=== PATIENT | female | born 1990 | race Two or more races ===

== ENCOUNTER 2021-10-09 08:58 | Emergency (ER) | payer OTHER ==
[2021-10-09] MEDS ORDERED: MAGNES/ALUMIN/SIMET 30ML UCUP ONE (11:09)
[2021-10-09] MEDS ORDERED: ONDANSETRON 4 MG/2 ML VIAL ONE (11:10)
[2021-10-09] MEDS ORDERED: MORPHINE 4 MG/ML SYR ONE (11:10)
[2021-10-09] MEDS ORDERED: dexAMETHasone 10 MG/ML VIAL ONE (11:10)
[2021-10-09] MEDS ORDERED: LIDOCAINE VISCOUS 2% SOLN 15 ML UDC ONE ×2 (11:10→12:44)
[2021-10-09 11:42] LABS: Urine Blood Negative (Negative); Urine Glucose Negative (Negative); Urine Protein Negative (Negative); Urine Specific Gravity >=1.030 (1.005-1.030)
[2021-10-09 12:20] LABS: SARS-COV-2 RT PCR NEGATIVE (NEGATIVE)
--- NOTE | 2021-10-09 12:23 | RAD REPORT ---
EXAM DESCRIPTION: CT - Soft Tissue Neck W/Contr CLINICAL HISTORY: Rule out abscess COMPARISON: No comparisons TECHNIQUE All CT scans are performed using dose optimization technique as appropriate and may includ e automated exposure control or mA/KV adjustment according to patient size. FINDINGS: Hypertrophy of Waldeyer's ring. No fluid collection identified. Fossa Rosenmller are norm al. Parapharyngeal fat triangles are symmetric. Tongue base structures are normal. Epiglottis and aryepiglottic folds are normal. Piriform sinuses are well aerated. The vocal cords are normal in appearance. Salivary glands are normal in appearance. Upper lung bennett are clear. Included intracranial contents are unremarkable. IMPRESSION: Prominent presumably reactive tonsils but no fluid collection or evidence of significant airway narrowing.
[2021-10-09] MEDS ORDERED: LIDOCAINE 1% 20 ML MDV ONE (12:44)
[2021-10-09] MEDS ORDERED: BUPIVACAINE 0.5% PF 10 ML VIAL ONE (12:44)
[2021-10-09] MEDS ORDERED: CLINDAMYCIN 900MG/D5W 900 MG/50 ML IVPB IV ONE (12:46)
[2021-10-09] MEDS ORDERED: LORazepam 2 MG/ML VIAL ONE (13:24)
--- NOTE | 2021-10-09 14:18 | ER ---
Nurse's Notes [facility] Name: Nae Harris Age: 31 yrs Sex: Female : 1990 Arrival Date: 10/09/2021 Time: 09:04 Bed 23 Private MD: Diagnosis: Acute pharyngitis, unspecified Presentation: 10/09 09:37 Chief complaint: Patient states: approx three days ago, she started having pain in her ap3 throat. She reports the pain has gotten worse over the last few days, and her made her come to the ED for evaluation. Patient also reports she is unable to eat, it hurts to swallow and it is getting worse. Patient also reports left ear pain, and throbbing on the left side of her face. Patient communicates through hand motion and written communication due to severe pain. Coronavirus screen: At this time, the client does not indicate any symptoms associated with coronavirus-19. Ebola Screen: No symptoms or risks identified at this time. Initial Sepsis Screen: Does the patient meet any 2 criteria? No. Patient's initial sepsis screen is negative. Does the patient have a suspected source of infection? No. Patient's initial sepsis screen is negative. Risk Assessment: Do you want to hurt yourself or someone else? Patient reports no desire to harm self or others. Onset of symptoms was October 06, 2021. 09:37 Method Of Arrival: Ambulatory ap3 09:37 Acuity: QUINTON 3 ap3 Triage Assessment: 09:41 General: Appears uncomfortable, Behavior is quiet. Pain: Complains of pain in neck, ap3 throat, left face, left ear Pain currently is 10 out of 10 on a pain scale. Also complains of inability to eat and verbally communicate. EENT: Throat is reddened has patchy exudate on right Reports difficulty swallowing pain when swallowing. Neuro: Level of Consciousness is awake, alert, obeys commands, Oriented to person, place, time, situation, Gait is steady, Speech is normal. Cardiovascular: Patient's skin is warm and dry. Respiratory: Airway is patent Respiratory effort is even, unlabored, Respiratory pattern is regular, symmetrical. 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 - Social history:: Smoking status: Patient denies any tobacco usage or history of. Screenin:42 Abuse screen: Denies threats or abuse. Nutritional screening: No deficits noted. ap3 Tuberculosis screening: No symptoms or risk factors identified. 09:45 Fall Risk No fall in past 12 months (0 pts). ap3 Assessment: 10:05 General: Appears in no apparent distress. uncomfortable, Behavior is cooperative, ab2 appropriate for age. Pain: Complains of pain in throat Pain currently is 10 out of 10 on a pain scale. Neuro: Level of Consciousness is awake, alert, obeys commands, Oriented to person, Commercial Food Instructor are equal bilaterally Full function Gait is steady. Cardiovascular: No deficits noted. Denies chest pain, shortness of breath, Heart tones S1 S2 present Patient's skin is warm and dry. Respiratory: Airway is patent Respiratory effort is even, unlabored, Respiratory pattern is regular, symmetrical, GI: No deficits noted. No signs and/or symptoms were reported involving the gastrointestinal system. Abdomen is round non-distended, Bowel sounds present X 4 quads. : No deficits noted. No signs and/or symptoms were reported regarding the genitourinary system. EENT: Reports pain in throat when swallowing. Derm: Skin is intact, is healthy with good turgor, Skin is pink, warm \\T\\ dry. 11:56 Reassessment: Patient appears in no apparent distress at this time. No changes from ab2 previously documented assessment. Patient went to CT scan. Pt states throat was feeling better but it still causes her pain to swallow. 12:44 Reassessment: Patient appears in no apparent distress at this time. Pt still in pain, ab2 PA Mickail notified. 13:32 Reassessment: Patient appears in no apparent distress at this time. Pt states she has ab2 anxiety and is anxious. Order for Ativan given per PA order. Pt tolerating well. Vital Signs: 09:37 BP 100 / 58; Pulse 73; Temp 99.5; Pulse Ox 100% ; Weight 61.23 kg; Height 5 ft. 8 in. ap3 (172.72 cm); Pain 10/10; 10:41 BP 97 / 54; Pulse 71; Resp 18; Pulse Ox 100% ; Pain 10/10; ab2 11:15 BP 118 / 70; Pulse 79; Resp 18; Pulse Ox 100% on R/A; ab2 12:44 BP 103 / 64; Pulse 63; Resp 17; Pulse Ox 100% on R/A; ab2 13:32 BP 109 / 73; Pulse 69; Resp 18; Pulse Ox 100% on R/A; ab2 14:03 BP 105 / 68; Pulse 75; Resp 16; Pulse Ox 99% on R/A; ab2 09:37 Body Mass Index 20.53 (61.23 kg, 172.72 cm) ap3 ED Course: 09:04 Patient arrived in ED. am2 09:13 Everton Beltran PA is PHCP. jmm 09:13 Earle Argueta MD is Attending Physician. jmm 09:39 Triage completed. ap3 09:45 Arm band placed on left wrist. ap3 10:05 Joseph Butler is Primary Nurse. ab2 10:07 Patient has correct armband on for positive identification. Bed in low position. Call ab2 light in reach. Side rails up X2. 10:07 No provider procedures requiring assistance completed. ab2 10:42 COVID-19/FLU A+B (Document "Date of Onset" if Symptomatic) Sent. ab2 10:42 Strep Sent. ab2 11:15 Inserted saline lock: 20 gauge in right antecubital area, using aseptic technique. ab2 12:18 Soft Tissue Neck W/Contr In Process Unspecified. EDMS 14:03 IV discontinued, intact, bleeding controlled, No redness/swelling at site. Pressure ab2 dressing applied. 14:16 Anya Khanna MD is Referral Physician. sorayam Administered Medications: 10:25 CANCELLED (Duplicate Order): morphine 4 mg IM once; RASS on ADMIN: Combtv4, Very jmm Agttd3, Agttd2, Rstlss1, AlertClm0, Drwsy-1, Lt Sdtn-2, Mod Sdtn-3, Dp Sdtn-4, UnArsble-5 10:41 CANCELLED (Duplicate Order): Ondansetron 4 mg PO once ab2 11:14 Drug: Zofran (Ondansetron) 4 mg Route: IVP; Site: right antecubital; ab2 13:38 Follow up: Response: No adverse reaction ab2 11:15 Drug: Decadron (dexamethasone) 10 mg Route: IM; Site: right deltoid; ab2 13:38 Follow up: Response: No adverse reaction ab2 11:15 Drug: GI Cocktail without - (Maalox Suspension 30 ml, Lidocaine Liquid 2 % 15 ab2 ml) Route: PO; 13:38 Follow up: Response: No adverse reaction ab2 11:15 Drug: morphine 4 mg Route: IVP; Site: right antecubital; ab2 13:38 Follow up: Response: No adverse reaction ab2 12:41 CANCELLED (Duplicate Order): Decadron - Dexamethasone 10 mg IVP once ab2 12:44 Drug: Clindamycin 900 mg Route: IVPB; Infused Over: 30 mins; Site: right antecubital; ab2 12:47 Drug: Marcaine (bupivacaine) (0.5 %) 10 ml {Note: used by devin MCDANIEL} Volume: 10 ml; ab2 Route: Infiltration; 12:47 Drug: Lidocaine (1 %) 20 ml {Note: used by Devin MCDANIEL} Volume: 20 ml; Route: ab2 Infiltration; 13:38 Follow up: Response: No adverse reaction ab2 13:24 Drug: Ativan (LORazepam) 1 mg Route: IVP; Site: right antecubital; ab2 13:38 Follow up: Response: No adverse reaction ab2 Outcome: 14:18 Discharge ordered by MD. [place] 14:31 Discharged to home ambulatory. ab2 14:31 Condition: good 14:31 Discharge instructions given to patient, Instructed on discharge instructions, follow up and referral plans. medication usage, Demonstrated understanding of instructions, follow-up care, medications, Prescriptions given X 1. 14:31 Patient left the ED. ab2 Signatures: Dispatcher [employer] EDMS Everton Beltran PA PA jmm Moreno, Amanda am2 Elizabeth Stephens, RN RN ap3 Joseph Butler ab2
--- NOTE | 2021-10-09 14:18 | EDPHYS ---
Physician Documentation [facility] Name: Nae Harris Age: 31 yrs Sex: Female : 1990 Arrival Date: 10/09/2021 Time: 09:04 Bed 23 Private MD: TOD Physician Earle Argueta HPI: 10/09 10:04 This 31 yrs old Female presents to ER via Ambulatory with complaints of Sore Throat, jmm Headache, Ear Pain, Facial pain. 10:04 The patient presents with sore throat. Onset: The symptoms/episode began/occurred jmm gradually, 3 day(s) ago. Modifying factors: The symptoms are alleviated by nothing, the symptoms are aggravated by fluids, swallowing. This is a 31-year-old female with history of tubal the presents emerged part with complaints of sore throat began approximately 3 days ago. Patient now has difficulty speaking, feels worse, pain on swallowing, radiates into the left ear.. 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 - Social history:: Smoking status: Patient denies any tobacco usage or history of. ROS: 10:04 Constitutional: Negative for fever, chills, and weight loss. jmm 10:04 Neck: Negative for injury, pain, and swelling, Cardiovascular: Negative for chest pain, palpitations, and edema, Respiratory: Negative for shortness of breath, cough, wheezing, and pleuritic chest pain. 10:04 ENT: Positive for sore throat. 10:04 All other systems are negative. Exam: 10:04 Constitutional: This is a well developed, well nourished patient who is awake, alert, jmm and in no acute distress. Head/Face: atraumatic. Eyes: EOMI, no conjunctival erythema appreciated 10:04 Neck: Trachea midline, Supple Chest/axilla: Normal chest wall appearance and motion. Cardiovascular: Regular rate and rhythm. No edema appreciated Respiratory: Normal respirations, no respiratory distress appreciated Abdomen/GI: Non distended, soft Back: Normal ROM Skin: General appearance color normal MS/ Extremity: Moves all extremities, no obvious deformities appreciated, no edema noted to the lower extremities Neuro: Awake and alert Psych: Behavior is normal, Mood is normal, Patient is cooperative and pleasant 10:04 ENT: Posterior pharynx: Tonsils: erythema, peritonsillar mass, is not appreciated. Vital Signs: 09:37 BP 100 / 58; Pulse 73; Temp 99.5; Pulse Ox 100% ; Weight 61.23 kg; Height 5 ft. 8 in. ap3 (172.72 cm); Pain 10/10; 10:41 BP 97 / 54; Pulse 71; Resp 18; Pulse Ox 100% ; Pain 10/10; ab2 11:15 BP 118 / 70; Pulse 79; Resp 18; Pulse Ox 100% on R/A; ab2 12:44 BP 103 / 64; Pulse 63; Resp 17; Pulse Ox 100% on R/A; ab2 13:32 BP 109 / 73; Pulse 69; Resp 18; Pulse Ox 100% on R/A; ab2 14:03 BP 105 / 68; Pulse 75; Resp 16; Pulse Ox 99% on R/A; ab2 09:37 Body Mass Index 20.53 (61.23 kg, 172.72 cm) ap3 MDM: 10:04 Patient medically screened. [facility] 14:15 Data reviewed: vital signs, nurses notes. ED course: Patient remained very jmm uncomfortable after administration of additional pain medications. Patient was then given viscous lidocaine and 0.5% Marcaine 1 male was injected into the left peritonsillar region. This did give the patient relief. Patient was able to speak speak after this. Patient given dexamethasone will be given oral antibiotics and advised follow-up with ENT for further evaluation.. 10/09 10:22 Order name: Strep; Complete Time: 11:51 [facility] 10/09 10:22 Order name: COVID-19/FLU A+B (Document "Date of Onset" if Symptomatic); Complete Time: [facility] 12:27 10/09 11:42 Order name: Urine Dipstick-Ancillary; Complete Time: 11:51 [facility] 10/09 11:43 Order name: Throat Culture [facility] 10/09 10:42 Order name: Soft Tissue Neck W/Contr; Complete Time: 12:27 EDMS 10/09 10:24 Order name: Saline Lock; Complete Time: 11:15 jmm 10/09 11:33 Order name: Urine Test (obtain specimen); Complete Time: 11:41 [facility] Administered Medications: 10:25 CANCELLED (Duplicate Order): morphine 4 mg IM once; RASS on ADMIN: Combtv4, Very jmm Agttd3, Agttd2, Rstlss1, AlertClm0, Drwsy-1, Lt Sdtn-2, Mod Sdtn-3, Dp Sdtn-4, UnArsble-5 10:41 CANCELLED (Duplicate Order): Ondansetron 4 mg PO once ab2 11:14 Drug: Zofran (Ondansetron) 4 mg Route: IVP; Site: right antecubital; ab2 13:38 Follow up: Response: No adverse reaction ab2 11:15 Drug: Decadron (dexamethasone) 10 mg Route: IM; Site: right deltoid; ab2 13:38 Follow up: Response: No adverse reaction ab2 11:15 Drug: GI Cocktail without - (Maalox Suspension 30 ml, Lidocaine Liquid 2 % 15 ab2 ml) Route: PO; 13:38 Follow up: Response: No adverse reaction ab2 11:15 Drug: morphine 4 mg Route: IVP; Site: right antecubital; ab2 13:38 Follow up: Response: No adverse reaction ab2 12:41 CANCELLED (Duplicate Order): Decadron - Dexamethasone 10 mg IVP once ab2 12:44 Drug: Clindamycin 900 mg Route: IVPB; Infused Over: 30 mins; Site: right antecubital; ab2 12:47 Drug: Marcaine (bupivacaine) (0.5 %) 10 ml {Note: used by devin PA.} Volume: 10 ml; ab2 Route: Infiltration; 12:47 Drug: Lidocaine (1 %) 20 ml {Note: used by Devin PA.} Volume: 20 ml; Route: ab2 Infiltration; 13:38 Follow up: Response: No adverse reaction ab2 13:24 Drug: Ativan (LORazepam) 1 mg Route: IVP; Site: right antecubital; ab2 13:38 Follow up: Response: No adverse reaction ab2 Disposition Summary: 10/09/21 14:18 Discharge Ordered Location: Home [facility] Condition: Stable [facility] Diagnosis - Acute pharyngitis, unspecified [facility] Followup: [facility] - With: Anya Khanna MD - When: 2 - 3 days - Reason: Recheck today's complaints, Continuance of care, Re-evaluation by your physician Discharge Instructions: - Discharge Summary Sheet jm - Pharyngitis jmm - Strep Throat, Adult [facility] Forms: - Medication Reconciliation Form jmm - Work release form [facility] - Thank You Letter [facility] - Antibiotic Education [facility] - Prescription Opioid Use [facility] Prescriptions: - clindamycin palmitate HCl 75 mg/5 mL Oral recon soln - take 20 milliliter by ORAL route every 6 hours; 800 milliliter; Refills: 0, [facility] Product Selection Permitted Addendum: 10/11/2021 18:41 Co-signature as Attending Physician, Earle Argueta MD I agree with the assessment and c uribe plan of care. Signatures: Dispatcher [employer] Earle Lowe MD MD cha Mickail, Joel, PA PA Elizabeth Portillo, RN RN ap3 Joseph Butler2 Corrections: (The following items were deleted from the chart) 10/09 10:25 10:22 morphine 4 mg IM once; RASS on ADMIN: Combtv4, Very Agttd3, Agttd2, Rstlss1, [facility] AlertClm0, Drwsy-1, Lt Sdtn-2, Mod Sdtn-3, Dp Sdtn-4, UnArsble-5 ordered. [facility] 10:36 10:30 CT-SOFT TISSUE NECK W/O CONTR ordered. [facility] EDMS 10:41 10:22 Ondansetron 4 mg PO once ordered. [facility] ab2 10:42 10:36 Soft Tissue Neck Wo Contr ordered. [facility] EDMS 12:41 12:14 Decadron - Dexamethasone 10 mg IVP once ordered. [facility] ab2
[2021-10-09 19:47] VITALS: TEMP 99.5
[2021-10-09 19:55] VITALS: BP 105/68; O2SAT 99
== END 2021-10-09 14:31 | disposition home or self-care (01) ==
LOC: ER 08:58
DX: J02.9 Acute pharyngitis, unspecified (principal); R51.9 Headache, unspecified; Z20.822 Contact with and (suspected) exposure to COVID-19
CPT/HCPCS: 87070; 87081; 81003; 0240U; 70491; 96375; 96372; 96374; 99284; Q9967; J1100; J2405

== ENCOUNTER 2021-10-22 11:09 | Emergency (ER) | payer OTHER ==
--- OUTSIDE RECORDS SUMMARY | 2021-10-22 11:14 | XMS REPORT | Continuity of Care Document ---
:1990 Author Organization [facility] t Address [address] [place] [address] [place] [address] Care Team Providers Name Role Phone PCP, DOES NOT HAVE A Primary Care Physician Unavailable Adrián CORNELL Attending Clinician Unavailable TONI Attending Clinician Unavailable Anastasiya Pascual Attending Clinician Reji Attending Clinician Unavailable Sai Attending Clinician Unavailable Reji Admitting Clinician Unavailable Payers Payer Name Policy Type Policy Number Effective Date Expiration Date Cammie elmore [facility] [id number] 2021 00:00:00 Problems Condition Condition Condition Status Onset Resolution Last Treating Co mments Source Name Details Category Date Date Treatment Clinician Date Other Other Disease Active Univers general general 3-29 ity of counseling [place] and advice 00 Me dical for for Branch contracept contracept adin adin management management Sterilizat Sterilizat Disease Active Overview : Univers ion ion 1-11 Formattin ity of consult consult 00:00: g of this [place] 00 note Medical might be Branch different from the original. Added automatic ally from request for surgery [id number] Need for Need for Disease Active 2020-06 Unive rs prophylact prophylact 2-09 it y of ic ic 00:00: [place] vaccinatio vaccinatio 00 Me dical n and n and Branch inoculatio inoculatio n against n against influenza influenza Cervical Cervical Disease Active Overview: Un j[place]ots[place] high risk high risk 8-02 Formattin i ty of HPV (human HPV (human 00:00: g of this [place] papillomav papillomav 00 note Me dical irus) test irus) test might be Branch positive positive different from the original. Last Assessmen t & Plan: Formattin g of this note might be different from the original. 06/2018 Marijuana Marijuana Disease Active Uni vers use use 4-17 ity of 00:00: [address] Branch Abnormal Abnormal Disease Active Overview: Un jyots[place] Pap smear Pap smear 3-17 Formattin i ty of of cervix of cervix 00:00: [place] of this [place] 00 note Medical might be Branch different from the original. Formattin g of this note might be different from the original. 06/2020 - NILM, + HPV untyped. Plan: repeat 12 mo Anxiety Anxiety Disease Active Univers disorder disorder 1-19 ity of 00:00: [address] Branch [facility] [id number] Vaginal Finding Active [id number] ([place]) [id number] History of Finding Active [facility] l [facility] hypertensi [place] on ([place]) [id number] Term Finding [facility] delivered [place] ([place]) [id number] Mother Finding Active [facility] breast-fee [facility] ding [place] ([place]) Finding Active [facility] [place] ([place]) [id number] Group B Finding Active [facility] [address] streptococ [facility] gladis [facility] carriage [place] complicati ([place] ) ng [id number] Back pain Finding Active [facility] in third [place] trimester ([place]) Allergies, Adverse Reactions, Alerts Allergy Allergy Status Severity Reaction(s) Onset Inactive Treating Comm ents Source Name Type Date Date Clinician No Known DA Active [facility] 5- Allergie 00:00: s 00 No Known DA Active [facility] Drug 4- Allergie 00:00: s 00 No Known DA Active [facility] Drug 3-11 Allergie 00:00: s 00 NO KNOWN Drug Active Univers ALLERGIE Class ity of S [facility] Social History Social Habit Start Date Stop Date Quantity Comments Source ASSERTION MIA [facility] (Manjit rivero) Exposure to Not sure [facility] SARS-CoV-2 [facility] (event) Branch Alcohol intake 2021-09-25 2021-09-25 Ex-drinker University 00:00:00 00:00:00 (finding) [facility] Tobacco use and 2021-06-07 2021-06-07 Never used Universit y of exposure 00:00:00 00:00:00 [facility] Sex Ass[birth year] At [birth year] Universit y of 00:00:00 00:00:00 [facility] Smoking Status Start Date Stop Date Source Unknown if ever smoked MIA [facility] [place] ([place]) Never smoker [facility] Medications Ordered Filled Start Stop Current Ordering Indication Dosage Frequency Signature Comments Components Source Medication Medication Date Date Medication? Clinician (SIG) Name Name fluconazole 2021- Yes [id number] 150mg Take 1 Univers (DIFLUCAN) 3-31 - tablet by ity of 150 mg 00:00: 04:59 [place] tablet 00 :00 now for 1 Medical dose. Branch ibuprofen Yes [id number] 600mg Take 1 Univers 600 mg 3- [id number] tablet by ity of tablet 00:00: mouth [place] 00 every 6 Medical (six) Branch hours as needed for Pain (scale 4-6). docusate Yes [id number] 100mg Take 1 Univers 100 mg 3- [id number] capsule by ity o f capsule 00:00: mouth 2 [place] 00 (two) Medical times Branch daily as needed for Constipati on. Yes Take by Unive rs vit 2-22 mouth. ity of calc,iron,f 11:23: [place] olic 01 Medical ( Branch VITAMIN ORAL) ibuprofen Yes [id number] 600mg Take 1 Univers 600 mg 2-22 tablet by ity of tablet 00:00: mouth [place] 00 every 6 Medical (six) Branch hours as needed for Alternate with [place] for pain scale 4-6. Acetaminoph 2017-06 No General 650MG Q6H PRN [facility]-Moder [facility]. 00 ate Pain [place] (1-5) ([place]) Docusate 2017-06 No General 240MG Twice [facility] Calcium 1-23 [facility] Daily [facility] - [facility] Hospital St[facility] 00 [place] ([place]) Ibuprofen 2017-06 No General 800MG Every [address] 1-23 Acute Care Hours [facility] - [facility] Hospital [facility] 00 [place] ([place]) Acetaminoph 2017-06 No General 650MG Q6H PRN [facility] 23 [facility] - [facility]-Moder [facility]. 00 ate Pain [place] (1-5) ([place]) Docusate 2017-06 No General 240MG Twice [facility] Calcium 1-23 Acute Care Daily [facility] - [facility] Hospital [facility] 00 [place] ([place]) Ibuprofen 2017-06 No General 800MG Every [address] 1-23 Acute Care Hours [facility] - 00:[facility] Hospital [facility] 00 [place] ([place]) 2017-06 No General 1EACH Daily [facility] Vit 0-25 Acute Care [facility] - No.129/Iron 00:00: Hospital St . /Folic 00 [place] Harden) 2017-06 No General 1EACH Daily [facility] Vit 0-25 [facility] Care [facility] - No.129/Iron 00:00: Hospital St . /Folic 00 [place] Harden) 2017-06 No General 1EACH Daily [facility] Vit 0-25 [facility] Care [facility] - No.129/Iron 00:00: Hospital St . /Folic 00 [place] Hilarioan) Cyclobenzap 2017-06 No General 10MG Three [facility] I [facility] rine 0-25 Acute [facility] Times [facility] - 00:[facility]: Hospital Daily PRN St. 00 For Muscle [place] Pain ([place]) 2017-06 No General 1EACH Daily [facility] Vit 0-25 [facility] Care [facility] - No.129/Iron 00:00: Hospital St . /Folic 00 [place] Harden) Cyclobenzap 2017-06 No General 10MG Three [facility] I [facility] rine 0-25 Acute Care Times [facility] - 00:00: Hospital Daily PRN St. 00 For Muscle [place] Pain ([place]) Cyclobenzap 2018-1 2018- No General 10MG Three C HI St. rine 0-25 05-20 Acute Care Times [facility] - 00:00: 13:[address] 00 :00 For Muscle [place] Pain ([place]) Cyclobenzap 2017-06- No General 10MG Three C HI [facility] rine 0-25 05-20 Acute Care Times [facility] - 00:00: 13:[address] 00 :00 For Muscle [place] Pain ([place]) Immunizations Ordered Filled Immunization Date Status Comments Sourc e Immunization Name Name Influenza Virus 2021-06-07 Completed Universit y of Vaccine Quad IM, 00:00:00 [facility] dical Preserv and ABX Branch Free 6 MO-64 YRS TDAP 2020-10-26 Completed [facility] 00:00:00 [facility] Vital Signs Vital Name Observation Time Observation Value Comments Source O2 % BldC Oximetry 2021-05-02 12:13:[address] [facility] [place] ([place]) Initial DRG Weight: 2020-11-24 05:13:45 1.0268 Working DRG Weight: 2020-11-24 05:13:45 1.0268 MIGUEL CHARGE Pulse 2020-11-24 05:13:45 Single Pulse Ox /min Oximetry NB Weight 2020-11-24 05:13:45 7832499\\S\\503798.771 Respiratory 2020-11-24 05:13:45 No respiratory distress /min 02 Sat by Pulse 2020-11-24 05:13:45 100 /min Oximetry Body Mass Index 2020-11-24 05:13:45 25.4 Height 2020-11-24 05:13:45 172.72\\S\\68 Pulse Rate 2020-11-24 05:13:45 59 /min Pulse Strength 2020-11-24 05:13:45 Normal /min Pulse Assessment 2020-11-24 05:13:45 Palpation /min Method Respiratory Rate 2020-11-24 05:13:45 18 /min Respiratory Depth 2020-11-24 05:13:45 Normal /min Respiratory Effort 2020-11-24 05:13:45 Spontaneous /min Respiratory Pattern 2020-11-24 05:13:45 Normal /min Temperature 2020-11-24 05:13:45 36.8\\S\\98.2 Weight 2020-11-24 05:13:45 17445.925\\S\\2672 Weight Measurement 2020-11-24 05:13:45 Estimated by Patient Method Respiratory 2020-11-20 16:21:34 No respiratory distress /min 02 Sat by Pulse 2020-11-20 16:21:34 100 /min Oximetry Body Mass Index 2020-11-20 16:21:34 25.4 Height 2020-11-20 16:21:34 172.72\\S\\68 Pulse Rate 2020-11-20 16:21:34 59 /min Pulse Strength 2020-11-20 16:21:34 Normal /min Pulse Assessment 2020-11-20 16:21:34 Palpation /min Method Respiratory Rate 2020-11-20 16:21:34 18 /min Respiratory Depth 2020-11-20 16:21:34 Normal /min Respiratory Effort 2020-11-20 16:21:34 Spontaneous /min Respiratory Pattern 2020-11-20 16:21:34 Normal /min Temperature 2020-11-20 16:21:34 36.8\\S\\98.2 Weight 2020-11-20 16:21:34 25281.925\\S\\2672 Weight Measurement 2020-11-20 16:21:34 Estimated by Patient Method Initial DRG Weight: 2020-11-20 16:21:33 1.0268 Working DRG Weight: 2020-11-20 16:21:33 1.0268 MIGUEL CHARGE Pulse 2020-11-20 16:21:33 Single Pulse Ox /min Oximetry NB Weight 2020-11-20 16:21:33 1512402\\S\\621666.771 Respiratory 2020-11-20 16:21:33 No respiratory distress /min 02 Sat by Pulse 2020-11-20 16:21:33 100 /min Oximetry Body Mass Index 2020-11-20 16:21:33 25.4 Height 2020-11-20 16:21:33 172.72\\S\\68 Pulse Rate 2020-11-20 16:21:33 59 /min Pulse Strength 2020-11-20 16:21:33 Normal /min Pulse Assessment 2020-11-20 16:21:33 Palpation /min Method Respiratory Rate 2020-11-20 16:21:33 18 /min Respiratory Depth 2020-11-20 16:21:33 Normal /min Respiratory Effort 2020-11-20 16:21:33 Spontaneous /min Respiratory Pattern 2020-11-20 16:21:33 Normal /min Temperature 2020-11-20 16:21:33 36.8\\S\\98.2 Weight 2020-11-20 16:21:33 28153.925\\S\\2672 Weight Measurement 2020-11-20 16:21:33 Estimated by Patient Method NB Weight 2020-11-20 13:40:39 2361108\\S\\300380.771 Respiratory 2020-11-20 13:40:39 No respiratory distress /min 02 Sat by Pulse 2020-11-20 13:40:39 100 /min Oximetry Body Mass Index 2020-11-20 13:40:39 25.4 Height 2020-11-20 13:40:39 172.72\\S\\68 Pulse Rate 2020-11-20 13:40:39 59 /min Pulse Strength 2020-11-20 13:40:39 Normal /min Pulse Assessment 2020-11-20 13:40:39 Palpation /min Method Respiratory Rate 2020-11-20 13:40:39 18 /min Respiratory Depth 2020-11-20 13:40:39 Normal /min Respiratory Effort 2020-11-20 13:40:39 Spontaneous /min Respiratory Pattern 2020-11-20 13:40:39 Normal /min Temperature 2020-11-20 13:40:39 36.8\\S\\98.2 Weight 2020-11-20 13:40:39 33576.925\\S\\2672 Weight Measurement 2020-11-20 13:40:39 Estimated by Patient Method Initial DRG Weight: 2020-11-20 13:40:39 1.0268 Working DRG Weight: 2020-11-20 13:40:39 1.0268 MIGUEL CHARGE Pulse 2020-11-20 13:40:39 Single Pulse Ox /min Oximetry Initial DRG Weight: 2020-11-20 09:41:28 1.0268 Working DRG Weight: 2020-11-20 09:41:28 1.0268 MIGUEL CHARGE Pulse 2020-11-20 09:41:28 Single Pulse Ox /min Oximetry NB Weight 2020-11-20 09:41:28 4204885\\S\\738194.771 Respiratory 2020-11-20 09:41:28 No respiratory distress /min 02 Sat by Pulse 2020-11-20 09:41:28 100 /min Oximetry Body Mass Index 2020-11-20 09:41:28 25.4 Height 2020-11-20 09:41:28 172.72\\S\\68 Pulse Rate 2020-11-20 09:41:28 59 /min Pulse Strength 2020-11-20 09:41:28 Normal /min Pulse Assessment 2020-11-20 09:41:28 Palpation /min Method Respiratory Rate 2020-11-20 09:41:28 18 /min Respiratory Depth 2020-11-20 09:41:28 Normal /min Respiratory Effort 2020-11-20 09:41:28 Spontaneous /min Respiratory Pattern 2020-11-20 09:41:28 Normal /min Temperature 2020-11-20 09:41:28 36.8\\S\\98.2 Weight 2020-11-20 09:41:28 59748.925\\S\\2672 Weight Measurement 2020-11-20 09:41:28 Estimated by Patient Method Initial DRG Weight: 2020-11-20 09:16:50 1.0268 Working DRG Weight: 2020-11-20 09:16:50 1.0268 MIGUEL CHARGE Pulse 2020-11-20 09:16:50 Single Pulse Ox /min Oximetry NB Weight 2020-11-20 09:16:50 6074420\\S\\135728.771 Respiratory 2020-11-20 09:16:50 No respiratory distress /min 02 Sat by Pulse 2020-11-20 09:16:50 100 /min Oximetry Body Mass Index 2020-11-20 09:16:50 25.4 Height 2020-11-20 09:16:50 172.72\\S\\68 Pulse Rate 2020-11-20 09:16:50 59 /min Pulse Strength 2020-11-20 09:16:50 Normal /min Pulse Assessment 2020-11-20 09:16:50 Palpation /min Method Respiratory Rate 2020-11-20 09:16:50 18 /min Respiratory Depth 2020-11-20 09:16:50 Normal /min Respiratory Effort 2020-11-20 09:16:50 Spontaneous /min Respiratory Pattern 2020-11-20 09:16:50 Normal /min Temperature 2020-11-20 09:16:50 36.8\\S\\98.2 Weight 2020-11-20 09:16:50 25808.925\\S\\2672 Weight Measurement 2020-11-20 09:16:50 Estimated by Patient Method Initial DRG Weight: 2020-11-20 08:33:21 1.0268 Working DRG Weight: 2020-11-20 08:33:21 1.0268 MIGUEL CHARGE Pulse 2020-11-20 08:33:21 Single Pulse Ox /min Oximetry NB Weight 2020-11-20 08:33:21 1531772\\S\\283053.771 Respiratory 2020-11-20 08:33:21 No respiratory distress /min 02 Sat by Pulse 2020-11-20 08:33:21 100 /min Oximetry Body Mass Index 2020-11-20 08:33:21 25.4 Height 2020-11-20 08:33:21 172.72\\S\\68 Pulse Rate 2020-11-20 08:33:21 59 /min Pulse Strength 2020-11-20 08:33:21 Normal /min Pulse Assessment 2020-11-20 08:33:21 Palpation /min Method Respiratory Rate 2020-11-20 08:33:21 18 /min Respiratory Depth 2020-11-20 08:33:21 Normal /min Respiratory Effort 2020-11-20 08:33:21 Spontaneous /min Respiratory Pattern 2020-11-20 08:33:21 Normal /min Temperature 2020-11-20 08:33:21 36.8\\S\\98.2 Weight 2020-11-20 08:33:21 18833.925\\S\\2672 Weight Measurement 2020-11-20 08:33:21 Estimated by Patient Method Initial DRG Weight: 2020-11-20 06:04:23 0.6411 Working DRG Weight: 2020-11-20 06:04:23 0.6411 MIGUEL CHARGE Pulse 2020-11-20 06:04:23 Single Pulse Ox /min Oximetry NB Weight 2020-11-20 06:04:23 0031788\\S\\786438.771 Respiratory 2020-11-20 06:04:23 No respiratory distress /min 02 Sat by Pulse 2020-11-20 06:04:23 100 /min Oximetry Body Mass Index 2020-11-20 06:04:23 25.4 Height 2020-11-20 06:04:23 172.72\\S\\68 Pulse Rate 2020-11-20 06:04:23 65 /min Pulse Strength 2020-11-20 06:04:23 Normal /min Pulse Assessment 2020-11-20 06:04:23 Palpation /min Method Respiratory Rate 2020-11-20 06:04:23 16 /min Respiratory Depth 2020-11-20 06:04:23 Normal /min Respiratory Effort 2020-11-20 06:04:23 Spontaneous /min Respiratory Pattern 2020-11-20 06:04:23 Normal /min Temperature 2020-11-20 06:04:23 36.6\\S\\97.9 Weight 2020-11-20 06:04:23 43259.925\\S\\2672 Weight Measurement 2020-11-20 06:04:23 Estimated by Patient Method NB Weight 2020-11-20 05:16:32 6445432\\S\\829107.771 Respiratory 2020-11-20 05:16:32 No respiratory distress /min 02 Sat by Pulse 2020-11-20 05:16:32 100 /min Oximetry Body Mass Index 2020-11-20 05:16:32 25.4 Height 2020-11-20 05:16:32 172.72\\S\\68 Pulse Rate 2020-11-20 05:16:32 65 /min Pulse Strength 2020-11-20 05:16:32 Normal /min Pulse Assessment 2020-11-20 05:16:32 Palpation /min Method Respiratory Rate 2020-11-20 05:16:32 16 /min Respiratory Depth 2020-11-20 05:16:32 Normal /min Respiratory Effort 2020-11-20 05:16:32 Spontaneous /min Respiratory Pattern 2020-11-20 05:16:32 Normal /min Temperature 2020-11-20 05:16:32 36.6\\S\\97.9 Weight 2020-11-20 05:16:32 56235.925\\S\\2672 Weight Measurement 2020-11-20 05:16:32 Estimated by Patient Method Initial DRG Weight: 2020-11-20 05:16:31 0.6411 Working DRG Weight: 2020-11-20 05:16:31 0.6411 MIGUEL CHARGE Pulse 2020-11-20 05:16:31 Single Pulse Ox /min Oximetry Initial DRG Weight: 2020-11-20 03:41:51 0.6411 Working DRG Weight: 2020-11-20 03:41:51 0.6411 MIGUEL CHARGE Pulse 2020-11-20 03:41:51 Single Pulse Ox /min Oximetry NB Weight 2020-11-20 03:41:51 7373081\\S\\918543.771 Respiratory 2020-11-20 03:41:51 No respiratory distress /min 02 Sat by Pulse 2020-11-20 03:41:51 100 /min Oximetry Body Mass Index 2020-11-20 03:41:51 25.4 Height 2020-11-20 03:41:51 172.72\\S\\68 Pulse Rate 2020-11-20 03:41:51 64 /min Pulse Strength 2020-11-20 03:41:51 Normal /min Pulse Assessment 2020-11-20 03:41:51 Palpation /min Method Respiratory Rate 2020-11-20 03:41:51 16 /min Respiratory Depth 2020-11-20 03:41:51 Normal /min Respiratory Effort 2020-11-20 03:41:51 Spontaneous /min Respiratory Pattern 2020-11-20 03:41:51 Normal /min Temperature 2020-11-20 03:41:51 36.6\\S\\97.9 Weight 2020-11-20 03:41:51 91545.925\\S\\2672 Weight Measurement 2020-11-20 03:41:51 Estimated by Patient Method Initial DRG Weight: 2020-11-19 20:00:44 0.6411 Working DRG Weight: 2020-11-19 20:00:44 0.6411 MIGUEL CHARGE Pulse 2020-11-19 20:00:44 Single Pulse Ox /min Oximetry NB Weight 2020-11-19 20:00:44 8474243\\S\\716726.771 Respiratory 2020-11-19 20:00:44 No respiratory distress /min 02 Sat by Pulse 2020-11-19 20:00:44 100 /min Oximetry Body Mass Index 2020-11-19 20:00:44 25.4 Height 2020-11-19 20:00:44 172.72\\S\\68 Pulse Rate 2020-11-19 20:00:44 71 /min Pulse Strength 2020-11-19 20:00:44 Normal /min Respiratory Rate 2020-11-19 20:00:44 17 /min Respiratory Depth 2020-11-19 20:00:44 Normal /min Respiratory Effort 2020-11-19 20:00:44 Spontaneous /min Respiratory Pattern 2020-11-19 20:00:44 Normal /min Temperature 2020-11-19 20:00:44 36.8\\S\\98.2 Weight 2020-11-19 20:00:44 37579.925\\S\\2672 Weight Measurement 2020-11-19 20:00:44 Estimated by Patient Method Initial DRG Weight: 2020-11-19 13:12:19 0.6411 Working DRG Weight: 2020-11-19 13:12:19 0.6411 MIGUEL CHARGE Pulse 2020-11-19 13:12:19 Single Pulse Ox /min Oximetry NB Weight 2020-11-19 13:12:19 5954872\\S\\608012.771 Respiratory 2020-11-19 13:12:19 No respiratory distress /min 02 Sat by Pulse 2020-11-19 13:12:19 100 /min Oximetry Body Mass Index 2020-11-19 13:12:19 25.4 Height 2020-11-19 13:12:19 172.72\\S\\68 Pulse Rate 2020-11-19 13:12:19 65 /min Pulse Strength 2020-11-19 13:12:19 Normal /min Respiratory Rate 2020-11-19 13:12:19 17 /min Respiratory Depth 2020-11-19 13:12:19 Normal /min Respiratory Effort 2020-11-19 13:12:19 Spontaneous /min Respiratory Pattern 2020-11-19 13:12:19 Normal /min Temperature 2020-11-19 13:12:19 36.5\\S\\97.7 Weight 2020-11-19 13:12:19 49767.925\\S\\2672 Weight Measurement 2020-11-19 13:12:19 Estimated by Patient Method Initial DRG Weight: 2020-11-19 09:09:52 0.6411 Working DRG Weight: 2020-11-19 09:09:52 0.6411 MIGUEL CHARGE Pulse 2020-11-19 09:09:52 Single Pulse Ox /min Oximetry NB Weight 2020-11-19 09:09:52 5068582\\S\\819972.771 Respiratory 2020-11-19 09:09:52 No respiratory distress /min 02 Sat by Pulse 2020-11-19 09:09:52 100 /min Oximetry Body Mass Index 2020-11-19 09:09:52 25.4 Height 2020-11-19 09:09:52 172.72\\S\\68 Pulse Rate 2020-11-19 09:09:52 60 /min Pulse Strength 2020-11-19 09:09:52 Normal /min Respiratory Rate 2020-11-19 09:09:52 17 /min Respiratory Depth 2020-11-19 09:09:52 Normal /min Respiratory Effort 2020-11-19 09:09:52 Spontaneous /min Respiratory Pattern 2020-11-19 09:09:52 Normal /min Temperature 2020-11-19 09:09:52 36.5\\S\\97.7 Weight 2020-11-19 09:09:52 36680.925\\S\\2672 Weight Measurement 2020-11-19 09:09:52 Estimated by Patient Method Initial DRG Weight: 2020-11-19 04:12:00 0.6411 Working DRG Weight: 2020-11-19 04:12:00 0.6411 MIGUEL CHARGE Pulse 2020-11-19 04:12:00 Single Pulse Ox /min Oximetry NB Weight 2020-11-19 04:12:00 6431204\\S\\656356.771 Respiratory 2020-11-19 04:12:00 No respiratory distress /min Body Mass Index 2020-11-19 04:12:00 25.4 Height 2020-11-19 04:12:00 172.72\\S\\68 Pulse Rate 2020-11-19 04:12:00 67 /min Pulse Strength 2020-11-19 04:12:00 Normal /min Respiratory Rate 2020-11-19 04:12:00 18 /min Respiratory Depth 2020-11-19 04:12:00 Normal /min Respiratory Effort 2020-11-19 04:12:00 Spontaneous /min Respiratory Pattern 2020-11-19 04:12:00 Normal /min Temperature 2020-11-19 04:12:00 37\\S\\98.6 Weight 2020-11-19 04:12:00 12172.925\\S\\2672 Weight Measurement 2020-11-19 04:12:00 Estimated by Patient Method Initial DRG Weight: 2020-11-18 22:38:08 0.6411 Working DRG Weight: 2020-11-18 22:38:08 0.6411 MIGUEL CHARGE Pulse 2020-11-18 22:38:08 Single Pulse Ox /min Oximetry NB Weight 2020-11-18 22:38:08 4157882\\S\\418682.771 Body Mass Index 2020-11-18 22:38:08 25.4 Height 2020-11-18 22:38:08 172.72\\S\\68 Pulse Rate 2020-11-18 22:38:08 78 /min Pulse Strength 2020-11-18 22:38:08 Normal /min Respiratory Rate 2020-11-18 22:38:08 18 /min Respiratory Depth 2020-11-18 22:38:08 Normal /min Respiratory Effort 2020-11-18 22:38:08 Spontaneous /min Respiratory Pattern 2020-11-18 22:38:08 Normal /min Temperature 2020-11-18 22:38:08 36.9\\S\\98.4 Weight 2020-11-18 22:38:08 76201.925\\S\\2672 Weight Measurement 2020-11-18 22:38:08 Estimated by Patient Method Initial DRG Weight: 2020-11-18 16:40:44 0.6411 Working DRG Weight: 2020-11-18 16:40:44 0.6411 MIGUEL CHARGE Pulse 2020-11-18 16:40:44 Single Pulse Ox /min Oximetry NB Weight 2020-11-18 16:40:44 0291303\\S\\390196.771 Body Mass Index 2020-11-18 16:40:44 25.4 Height 2020-11-18 16:40:44 172.72\\S\\68 Respiratory Depth 2020-11-18 16:40:44 Normal /min Respiratory Effort 2020-11-18 16:40:44 Spontaneous /min Respiratory Pattern 2020-11-18 16:40:44 Normal /min Temperature 2020-11-18 16:40:44 36.7\\S\\98.1 Weight 2020-11-18 16:40:44 62244.925\\S\\2672 Weight Measurement 2020-11-18 16:40:44 Estimated by Patient Method Initial DRG Weight: 2020-11-18 16:27:27 0.6411 Working DRG Weight: 2020-11-18 16:27:27 0.6411 MIGUEL CHARGE Pulse 2020-11-18 16:27:27 Single Pulse Ox /min Oximetry NB Weight 2020-11-18 16:27:27 1783124\\S\\667315.771 Body Mass Index 2020-11-18 16:27:27 25.4 Height 2020-11-18 16:27:27 172.72\\S\\68 Respiratory Depth 2020-11-18 16:27:27 Normal /min Respiratory Effort 2020-11-18 16:27:27 Spontaneous /min Respiratory Pattern 2020-11-18 16:27:27 Normal /min Temperature 2020-11-18 16:27:27 36.7\\S\\98.1 Weight 2020-11-18 16:27:27 22057.925\\S\\2672 Weight Measurement 2020-11-18 16:27:27 Estimated by Patient Method Initial DRG Weight: 2020-11-18 16:21:51 0.6411 Working DRG Weight: 2020-11-18 16:21:51 0.6411 MIGUEL CHARGE Pulse 2020-11-18 16:21:51 Single Pulse Ox /min Oximetry NB Weight 2020-11-18 16:21:51 1981617\\S\\473220.771 Body Mass Index 2020-11-18 16:21:51 25.4 Height 2020-11-18 16:21:51 172.72\\S\\68 Respiratory Depth 2020-11-18 16:21:51 Normal /min Respiratory Effort 2020-11-18 16:21:51 Spontaneous /min Respiratory Pattern 2020-11-18 16:21:51 Normal /min Temperature 2020-11-18 16:21:51 36.7\\S\\98.1 Weight 2020-11-18 16:21:51 20608.925\\S\\2672 Weight Measurement 2020-11-18 16:21:51 Estimated by Patient Method Initial DRG Weight: 2020-11-18 16:19:48 0.6411 Working DRG Weight: 2020-11-18 16:19:48 0.6411 MIGUEL CHARGE Pulse 2020-11-18 16:19:48 Single Pulse Ox /min Oximetry NB Weight 2020-11-18 16:19:48 0096771\\S\\518106.771 Body Mass Index 2020-11-18 16:19:48 25.4 Height 2020-11-18 16:19:48 172.72\\S\\68 Respiratory Depth 2020-11-18 16:19:48 Normal /min Respiratory Effort 2020-11-18 16:19:48 Spontaneous /min Respiratory Pattern 2020-11-18 16:19:48 Normal /min Temperature 2020-11-18 16:19:48 36.7\\S\\98.1 Weight 2020-11-18 16:19:48 00586.925\\S\\2672 Weight Measurement 2020-11-18 16:19:48 Estimated by Patient Method Initial DRG Weight: 2020-11-18 15:48:40 0.6411 Working DRG Weight: 2020-11-18 15:48:40 0.6411 MIGUEL CHARGE Pulse 2020-11-18 15:48:40 Single Pulse Ox /min Oximetry NB Weight 2020-11-18 15:48:40 9605837\\S\\660419.771 Body Mass Index 2020-11-18 15:48:40 25.4 Height 2020-11-18 15:48:40 172.72\\S\\68 Respiratory Depth 2020-11-18 15:48:40 Normal /min Respiratory Effort 2020-11-18 15:48:40 Spontaneous /min Respiratory Pattern 2020-11-18 15:48:40 Normal /min Temperature 2020-11-18 15:48:40 36.7\\S\\98.1 Weight 2020-11-18 15:48:40 82661.925\\S\\2672 Weight Measurement 2020-11-18 15:48:40 Estimated by Patient Method WEIGHT 2020-11-18 11:59:00 75.686970 kg HEIGHT 2020-11-18 11:59:00 172.72 cm Initial DRG Weight: 2020-11-18 11:43:29 0.6411 Working DRG Weight: 2020-11-18 11:43:29 0.6411 Body Mass Index 2020-11-18 11:43:29 25.4 Height 2020-11-18 11:43:29 172.72\\S\\68 Respiratory Depth 2020-11-18 11:43:29 Normal /min Respiratory Effort 2020-11-18 11:43:29 Spontaneous /min Respiratory Pattern 2020-11-18 11:43:29 Normal /min Weight 2020-11-18 11:43:29 15100.925\\S\\2672 Body Mass Index 2020-11-18 08:01:09 25.4 Height 2020-11-18 08:01:09 172.72\\S\\68 Respiratory Depth 2020-11-18 08:01:09 Normal /min Respiratory Effort 2020-11-18 08:01:09 Spontaneous /min Respiratory Pattern 2020-11-18 08:01:09 Normal /min Weight 2020-11-18 08:01:09 14575.925\\S\\2672 Body Mass Index 2020-11-18 07:39:39 25.4 Height 2020-11-18 07:39:39 172.72\\S\\68 Weight 2020-11-18 07:39:39 29624.925\\S\\2672 Body Mass Index 2020-11-18 07:39:08 25.4 Height 2020-11-18 07:39:08 172.72\\S\\68 Weight 2020-11-18 07:39:08 52151.925\\S\\2672 Body Mass Index 2020-11-18 07:14:37 25.4 Height 2020-11-18 07:14:37 172.72\\S\\68 Weight 2020-11-18 07:14:37 53161.925\\S\\2672 Body Mass Index 2020-11-18 07:13:35 25.4 Height 2020-11-18 07:13:35 172.72\\S\\68 Weight 2020-11-18 07:13:35 59314.925\\S\\2672 Body Mass Index 2020-11-18 07:06:25 25.4 Height 2020-11-18 07:06:25 172.72\\S\\68 Weight 2020-11-18 07:06:25 43633.925\\S\\2672 Body Mass Index 2020-11-18 06:59:40 25.4 Height 2020-11-18 06:59:40 172.72\\S\\68 Weight 2020-11-18 06:59:40 28359.925\\S\\2672 WEIGHT 2020-11-18 06:59:00 75.621238 kg HEIGHT 2020-11-18 06:59:00 172.72 cm Heart Rate 2020-11-17 06:31:13 135 /min Respiratory 2020-11-17 06:31:13 No respiratory distress /min Body Mass Index 2020-11-17 06:31:13 25.0 Height 2020-11-17 06:31:13 172.72\\S\\68 Weight 2020-11-17 06:31:13 70461.741\\S\\2640 Heart Rate 2020-10-27 00:31:28 135 /min Respiratory 2020-10-27 00:31:28 No respiratory distress /min Body Mass Index 2020-10-27 00:31:28 25.0 Height 2020-10-27 00:31:28 172.72\\S\\68 Weight 2020-10-27 00:31:28 51431.741\\S\\2640 Heart Rate 2020-10-27 00:31:27 135 /min Respiratory 2020-10-27 00:31:27 No respiratory distress /min Body Mass Index 2020-10-27 00:31:27 25.0 Height 2020-10-27 00:31:27 172.72\\S\\68 Weight 2020-10-27 00:31:27 37027.741\\S\\2640 Heart Rate 2020-10-25 22:58:07 135 /min Respiratory 2020-10-25 22:58:07 No respiratory distress /min Body Mass Index 2020-10-25 22:58:07 25.0 Height 2020-10-25 22:58:07 172.72\\S\\68 Weight 2020-10-25 22:58:07 89513.741\\S\\2640 Heart Rate 2020-10-25 20:46:49 135 /min Respiratory 2020-10-25 20:46:49 No respiratory distress /min Body Mass Index 2020-10-25 20:46:49 25.0 Height 2020-10-25 20:46:49 172.72\\S\\68 Weight 2020-10-25 20:46:49 78069.741\\S\\2640 Body Mass Index 2020-10-25 17:06:45 25.0 Height 2020-10-25 17:06:45 172.72\\S\\68 Weight 2020-10-25 17:06:45 29488.741\\S\\2640 WEIGHT 2020-10-25 17:06:00 74.951526 kg HEIGHT 2020-10-25 17:06:00 172.72 cm Have you Lost Weight 2020-09-10 06:46:20 No Without Trying in the Past 6 Months? Body Mass Index 2020-09-10 06:46:20 24.0 Height 2020-09-10 06:46:20 173.99\\S\\68.5 Respiratory Depth 2020-09-10 06:46:20 Normal /min Respiratory Effort 2020-09-10 06:46:20 Spontaneous /min Respiratory Pattern 2020-09-10 06:46:20 Normal /min Weight 2020-09-10 06:46:20 72216.779\\S\\2560 Weight Measurement 2020-09-10 06:46:20 Estimated by Patient Method Have you Lost Weight 2020-09-08 09:22:33 No Without Trying in the Past 6 Months? Body Mass Index 2020-09-08 09:22:33 24.0 Height 2020-09-08 09:22:33 173.99\\S\\68.5 Respiratory Depth 2020-09-08 09:22:33 Normal /min Respiratory Effort 2020-09-08 09:22:33 Spontaneous /min Respiratory Pattern 2020-09-08 09:22:33 Normal /min Weight 2020-09-08 09:22:33 81697.779\\S\\2560 Weight Measurement 2020-09-08 09:22:33 Estimated by Patient Method Have you Lost Weight 2020-09-08 09:21:31 No Without Trying in the Past 6 Months? Body Mass Index 2020-09-08 09:21:31 24.0 Height 2020-09-08 09:21:31 173.99\\S\\68.5 Respiratory Depth 2020-09-08 09:21:31 Normal /min Respiratory Effort 2020-09-08 09:21:31 Spontaneous /min Respiratory Pattern 2020-09-08 09:21:31 Normal /min Weight 2020-09-08 09:21:31 09196.779\\S\\2560 Weight Measurement 2020-09-08 09:21:31 Estimated by Patient Method Have you Lost Weight 2020-09-08 09:18:57 No Without Trying in the Past 6 Months? Body Mass Index 2020-09-08 09:18:57 24.0 Height 2020-09-08 09:18:57 173.99\\S\\68.5 Respiratory Depth 2020-09-08 09:18:57 Normal /min Respiratory Effort 2020-09-08 09:18:57 Spontaneous /min Respiratory Pattern 2020-09-08 09:18:57 Normal /min Weight 2020-09-08 09:18:57 08998.779\\S\\2560 Weight Measurement 2020-09-08 09:18:57 Estimated by Patient Method Have you Lost Weight 2020-09-08 07:50:49 No Without Trying in the Past 6 Months? Body Mass Index 2020-09-08 07:50:49 24.0 Height 2020-09-08 07:50:49 173.99\\S\\68.5 Respiratory Depth 2020-09-08 07:50:49 Normal /min Respiratory Effort 2020-09-08 07:50:49 Spontaneous /min Respiratory Pattern 2020-09-08 07:50:49 Normal /min Weight 2020-09-08 07:50:49 61376.779\\S\\2560 Weight Measurement 2020-09-08 07:50:49 Estimated by Patient Method Have you Lost Weight 2020-09-07 23:04:29 No Without Trying in the Past 6 Months? Body Mass Index 2020-09-07 23:04:29 24.0 Height 2020-09-07 23:04:29 173.99\\S\\68.5 Respiratory Depth 2020-09-07 23:04:29 Normal /min Respiratory Effort 2020-09-07 23:04:29 Spontaneous /min Respiratory Pattern 2020-09-07 23:04:29 Normal /min Weight 2020-09-07 23:04:29 50172.779\\S\\2560 Weight Measurement 2020-09-07 23:04:29 Estimated by Patient Method Have you Lost Weight 2020-09-07 22:08:54 No Without Trying in the Past 6 Months? Body Mass Index 2020-09-07 22:08:54 24.0 Height 2020-09-07 22:08:54 173.99\\S\\68.5 Respiratory Depth 2020-09-07 22:08:54 Normal /min Respiratory Effort 2020-09-07 22:08:54 Spontaneous /min Respiratory Pattern 2020-09-07 22:08:54 Normal /min Weight 2020-09-07 22:08:54 49167.779\\S\\2560 Weight Measurement 2020-09-07 22:08:54 Estimated by Patient Method Body Mass Index 2020-09-07 21:56:39 24.0 Height 2020-09-07 21:56:39 173.99\\S\\68.5 Respiratory Depth 2020-09-07 21:56:39 Normal /min Respiratory Effort 2020-09-07 21:56:39 Spontaneous /min Respiratory Pattern 2020-09-07 21:56:39 Normal /min Weight 2020-09-07 21:56:39 18260.779\\S\\2560 Weight Measurement 2020-09-07 21:56:39 Estimated by Patient Method Have you Lost Weight 2020-09-07 21:56:39 No Without Trying in the Past 6 Months? Have you Lost Weight 2020-09-07 21:53:36 No Without Trying in the Past 6 Months? Body Mass Index 2020-09-07 21:53:36 24.0 Height 2020-09-07 21:53:36 173.99\\S\\68.5 Respiratory Depth 2020-09-07 21:53:36 Normal /min Respiratory Effort 2020-09-07 21:53:36 Spontaneous /min Respiratory Pattern 2020-09-07 21:53:36 Normal /min Weight 2020-09-07 21:53:36 05053.779\\S\\2560 Weight Measurement 2020-09-07 21:53:36 Estimated by Patient Method Have you Lost Weight 2020-09-07 19:32:35 No Without Trying in the Past 6 Months? Body Mass Index 2020-09-07 19:32:35 24.0 Height 2020-09-07 19:32:35 173.99\\S\\68.5 Respiratory Depth 2020-09-07 19:32:35 Normal /min Respiratory Effort 2020-09-07 19:32:35 Normal for Patient /min Respiratory Pattern 2020-09-07 19:32:35 Normal /min Weight 2020-09-07 19:32:35 20464.779\\S\\2560 Weight Measurement 2020-09-07 19:32:35 Estimated by Patient Method Body Mass Index 2020-09-07 19:29:34 24.0 Height 2020-09-07 19:29:34 173.99\\S\\68.5 Respiratory Depth 2020-09-07 19:29:34 Normal /min Respiratory Effort 2020-09-07 19:29:34 Normal for Patient /min Respiratory Pattern 2020-09-07 19:29:34 Normal /min Weight 2020-09-07 19:29:34 85739.779\\S\\2560 Weight Measurement 2020-09-07 19:29:34 Estimated by Patient Method WEIGHT 2020-09-07 19:21:00 72.418666 kg HEIGHT 2020-09-07 19:21:00 173.99 cm Body Mass Index 2020-09-07 18:56:17 25.2 Height 2020-09-07 18:56:17 172.72\\S\\68 Respiratory Depth 2020-09-07 18:56:17 Normal /min Respiratory Effort 2020-09-07 18:56:17 Normal for Patient /min Respiratory Pattern 2020-09-07 18:56:17 Normal /min Weight 2020-09-07 18:56:17 46391.179\\S\\2652.573 Body Mass Index 2020-09-07 18:55:47 25.2 Height 2020-09-07 18:55:47 172.72\\S\\68 Respiratory Depth 2020-09-07 18:55:47 Normal /min Respiratory Effort 2020-09-07 18:55:47 Normal for Patient /min Respiratory Pattern 2020-09-07 18:55:47 Normal /min Weight 2020-09-07 18:55:47 17756.179\\S\\2652.573 Body Mass Index 2020-09-07 18:31:45 25.2 Height 2020-09-07 18:31:45 172.72\\S\\68 Respiratory Depth 2020-09-07 18:31:45 Normal /min Respiratory Effort 2020-09-07 18:31:45 Normal for Patient /min Respiratory Pattern 2020-09-07 18:31:45 Normal /min Weight 2020-09-07 18:31:45 08638.179\\S\\2652.573 WEIGHT 2020-09-07 18:31:00 75.031075 kg Body Mass Index 2020-09-07 18:04:08 56.9 Height 2020-09-07 18:04:08 172.72\\S\\68 Respiratory Depth 2020-09-07 18:04:08 Normal /min Respiratory Effort 2020-09-07 18:04:08 Normal for Patient /min Respiratory Pattern 2020-09-07 18:04:08 Normal /min Weight 2020-09-07 18:04:08 376128\\S\\5996.573 Body Mass Index 2020-09-07 18:01:35 56.9 Height 2020-09-07 18:01:35 172.72\\S\\68 Respiratory Depth 2020-09-07 18:01:35 Normal /min Respiratory Effort 2020-09-07 18:01:35 Normal for Patient /min Respiratory Pattern 2020-09-07 18:01:35 Normal /min Weight 2020-09-07 18:01:35 138054\\S\\5996.573 Body Mass Index 2020-09-07 17:40:36 56.9 Height 2020-09-07 17:40:36 172.72\\S\\68 Weight 2020-09-07 17:40:36 577545\\S\\5996.573 WEIGHT 2020-09-07 17:40:00 170 kg HEIGHT 2020-09-07 17:40:00 172.72 cm Body Temperature 2018-05-22 07:30:00 98.5 [degF] [facility] Heart Rate 2018-05-22 07:30:00 71 /min [facility] Respiratory Rate 2018-05-22 07:30:00 20 /min [facility] BP Systolic 2018-05-22 07:30:00 124 mm[Hg] [facility] BP Diastolic 2018-05-22 07:30:00 57 mm[Hg] [facility] O2 % BldC Oximetry 2018-05-22 03:05:00 98 % [facility] [place] [facility] Height 2018-05-20 14:30:[address] [facility] Weight Measured 2018-05-20 14:30:00 90.718 [facility] [place] [facility] BMI (Body Mass Index) 2018-05-20 14:30:00 30.4 kg/m2 [facility] Weight Measured 2018-04-23 16:12:00 84.82 [facility] [place] [facility] Body Temperature 2018-04-23 16:12:00 98.4 [degF] [facility] Heart Rate 2018-04-23 16:12:00 96 /min [facility] Respiratory Rate 2018-04-23 16:12:00 18 /min [facility] BP Systolic 2018-04-23 16:12:00 117 mm[Hg] [facility] BP Diastolic 2018-04-23 16:12:00 71 mm[Hg] [facility] BMI (Body Mass Index) 2018-04-23 16:12:00 28.4 kg/m2 [facility] [facility] Height 2018-04-23 16:12:[address] [facility] [place] [facility] Procedures Procedure Date / Time Performed Performing Clinician [facility] 2018-05-20 00:00:[address] [facility] [place] US Biophysical 2018-05-20 00:00:[address] [facility] [address] [facility] - Profile [place] ([place]) Vaginitis Screen 2018-05-20 00:00:[address] [facility] [address] [facility] [place]) Encounters Start End Encounter Admission Attending Care Care Encounter Source Date/Time Date/Time Type Type Clinicians Facility Department ID 2022-07-05 2022-07-05 [id number] [facility] 09:45:00 09:45:00 [facility] 2021-10-12 2021-10-12 [facility] [id number] [facility] 14:30:00 14:30:00 BABAK [id number] [facility] 2021-10-12 2021-10-12 [facility] [id number] [facility] 14:30:00 14:30:00 [facility] 2021-09-27 2021-09-27 Telephone [facility] [id number] Univers 00:00:00 00:00:00 Jessica Langford [employer] [id number] Junior as MATERNAL [id number] Med ical & CHILD [address] [place] [address] 2018-05-20 2018-05-22 Discharged U Reji, 2.16.840. [place] J0 [id number] [facility] St. 20:58:00 15:55:00 Inpatient Elizabeth [id number]. [facility] 01 L ukes - 3.4991.3. [facility] St. 1.2 Damon Harden) 2018-04-23 2018-04-23 Departed John Gibbs, 2..840. [place] J0 [id number] [facility] St. 15:54:00 17:20:00 Surgical Alessandra [id number]. [facility] 89 Rina kes - Day Care 3.4991.3. [facility] St. 1.2 Damon Harden) Results Test Description Test Time Test Comments Results Result [facility] e Comments [id number] SURGICAL 2018-05-26 PATHOLOGY, LEVEL 15:41:00 [place] [id number] Laboratory Printed: 05/26/18 [facility]: 1 Patient: VERONIKA POOLE Birthdate: 1990 Age/Sex: 27/F Spec#: [id number]: Elizabeth Mendoza MD Specimen Date: 05/21/18 Received Date: 05/25/18 Specimen: PLACENTA, THIRD TRIMESTER CLINICAL DIAGNOSIS 39.2 week , bleeding, possible abruption PATHOLOGIC DIAGNOSIS Placenta, vaginal delivery, clinical trimester: Third. Gross/microscopically determined trimester: Third. Gross features of placental disc: - Weight -- 466 gm. - Thickness -- 1.4 cm. - Shape/morphology -- Discoid. Gross features of umbilical cord: - Insertion -- Eccentrically at 5.5 cm from the nearest margin. - Number of vessels -- Three. - Length -- 51.0 cm. - Diameter -- 1.4 cm. Insertion of membrane: At the edge of the placenta. Microscopic findings: - Placental villi -- Unremarkable. Placenta was grossly complete (see comment). - membranes -- Unremarkable. - Decidua -- Unremarkable. - Maternal vessels -- Unremarkable. - Umbilical cord -- Three vessels, otherwise unremarkable. Comment: This placenta is from a 27-year-old G3, P1-0-1-1 female at 39 weeks who presentedwith vaginal bleeding and was clinically diagnosed with a small abruption. The gross Patient: VERONIKA POOLE Re05/20/18Loc: ALONSO MR#: [id number] CONTINUED ON NEXT PAGE Dis: 05/22/18ta: DIS IN [address] [address] Laboratory Printed: 05/26/[address] [place] [address] [facility] Page: 2 Patient: VERONIKA POOLE [id number] (Continued) ------- PATHOLOGIC DIAGNOSIS (Continued) evaluation of the placenta reveals no rupture sites (cotyledons are intact). No adherenthemorrhagic blood clots are seen. Pathologist:Lawanda Carrera MD Entered by:05/26/18 - 1541 VIOLET - PROCEDURES: [id number] GROSS DESCRIPTION A. PLACENTA, THIRD TRIMESTER PLACENTA AND CORD The specimen is received in 10% formalin, and is labeled with the patient's name and"placenta and cord". The specimen consists of a single discoid shaped placenta with atrimmed weight of 466 gm. The placenta measures 16.0 x 15.5 x 1.4 cm in greatestdimensions. The cord is inserted eccentrically 5.5 cm from the nearest margin. Theattached umbilical cord measures 51.0 cm in length with a 1.4 cm diameter. Cut sectioningof the umbilical cord reveals three vessels and appears grossly unremarkable. The fetalmembrane is inserted at the edge of the placenta. It is thin and semi-translucent with nogross abnormalities. The aspect of the placenta has a normal-appearing vascularpattern. It is delgado-purple in color with diffuse delgado-white infarct-like discolored areasranging from 3.5 to 1.6 cm in greatest dimension and comprises less than 5% of the fetalsurface. A industrial relations representative section is submitted. The maternal aspect has a ggtfqm-mwqkvmtskovw-khln on cotyledon. Upon cut sectioning it reveals a red-maroon spongy cut surface withno discrete lesions or masses grossly identified. No adherent hemorrhagic blood clotsgrossly noted. Cotyledons appear intact. Cover Making Machine Operator sections submitted in threecassettes, A1-3. Section code:A1 - cord and membraneA2 - aspectA3 - maternal aspect Dictated by: Johanny Tanner Patient: VERONIKA POOLE Re05/20/18Loc: 3SW MR#: [id number] CONTINUED ON NEXT PAGE Dis: 05/22/18ta: DIS IN [address] [address] Laboratory Printed: 05/26/[address] [place] [address] [facility] Page: 3 Patient: VERONIKA POOLE [id number] (Continued) ------- GROSS DESCRIPTION (Continued) Entered by: 05/25/18 Danuta KHAN MICROSCOPIC DESCRIPTION A microscopic examination was performed to arrive at the diagnostic conclusion reported. Signed (Electronically Signed) Lawanda Carrera MD 05/26/18 Patient: VERONIKA POOLE Re05/20/18Loc: 3SW MR#: [id number] END OF REPORT Dis: 05/22/18ta: DIS IN Molecular Testing MM 2018-05-24 23:51:00 Test Item Value Reference Range Interpretation Comme nts Molecular Testing MM (test Not Detected NotDetected code = GCPCRT) Molecular Testing MM (test Not Detected NotDetected code = CHLAMPCRT) Molecular Testing MM (test * code = PCRINTERP) Accu rate results ar e dependent on adequate specim encollection, absence of inhi bitors and sufficient DNA to bedetected. Acceptable spec imens for this test are vagina l orcervical swabs (self col lected or clinician colle cted),first void urine (primary specimen for males), and liq uidbased pap specimens.A res ult of "Inconclusive" warrants re-collection.V iability or infectivity can NOT be inferred since targetDNA may persist in the absence of viable organisms. Fo r Urine Sources Collection of u rine volumes greater than 20 -40 mLs mayresult in sp ecimen dilution that may reduce testsensitivity ; lesser volumes may not adequat rafaela rinseorganisms into the specimen Source: [id number] 06:03:00 Test Item Value Reference Range Interpretation Comments Hematology (test code = WBCT) 10.8 thou/uL 4.8-10.8 N Hematology (test code = RBCT) 3.49 mill/uL 4.20-5.40 L Hematology (test code = HGBT) 10.7 g/dL 12.0-16.0 L Hematology (test code = HCTT) 32.9 % 36.0-47.0 L Hematology (test code = MCV) 94.3 fL 78.0-98.0 N Hematology (test code = MCH) 30.6 pg 27.0-31.0 N Hematology (test code = MCHC) 32.4 g/dL 32.0-36.0 N Hematology (test code = RDW) 12.0 % 11.5-14.5 N Hematology (test code = PLTT) 167 thou/uL 130-400 N Hematology (test code = MPV) 6.6 fL 7.4-10.4 L Laboratory [id number] 05:47:00 Test Item Value Reference Range Interpretation Comments 6690-2 (test code = 6690-2) 10.8 thou/uL 4.8-10.8 [facility] [id number] 05:47:00 Test Item Value Reference Range Interpretation Comments 788-0 (test code = 788-0) 12.0 % 11.5-14.5 [facility])Laboratory [id number] 05:47:00 Test Item Value Reference Range Interpretation Comments 789-8 (test code = 789-8) 3.49 mill/uL 4.20-5.40 L [facility])Laboratory Dugbmof3766-71-15 05:47:00 Test Item Value Reference Range Interpretation Comments 777-3 (test code = 777-3) 167 thou/uL 130-400 [facility]Laboratory Lmknkjm9890-63-03 05:47:00 Test Item Value Reference Range Interpretation Comments 39899-1 (test code = 09654-6) 6.6 fL 7.4-10.4 L [facility] [id number] 05:47:00 Test Item Value Reference Range Interpretation Comments 787-2 (test code = 787-2) 94.3 fL 78.0-98.0 [facility] [id number] 05:47:00 Test Item Value Reference Range Interpretation Comments 786-4 (test code = 786-4) 32.4 g/dL 32.0-36.0 [facility] [id number] 05:47:00 Test Item Value Reference Range Interpretation Comments 785-6 (test code = 785-6) 30.6 pg 27.0-31.0 [facility] Cwucrlx6597-06-87 05:47:00 Test Item Value Reference Range Interpretation Comments 718-7 (test code = 718-7) 10.7 g/dL 12.0-16.0 L [facility] - Bzqmegks4574-37-02 19:14:00 Test Item Value Reference Range Interpretation Comments Chemistry - Specials (test Non-Reactive S/CO NonReactive code = THBSAG) [id number] 19:06:00 Test Item Value Reference Range Interpretation Comments Immunology (test code = SYPHABT) Nonreactive Nonreactive Type [id number] 18:56:00 Test Item Value Reference Range Interpretation Comments Blood Type Rh (test code = BT) B POSITIVE Antibody Screen (test code = ABSC) NEGATIVE Received Blood Or Been w/in Past 90 Days? [id number] 18:27:00 Test Item Value Reference Range Interpretation Comments Hematology (test code = WBCT) 11.7 thou/uL 4.8-10.8 H Hematology (test code = RBCT) 3.76 mill/uL 4.20-5.40 L Hematology (test code = HGBT) 11.7 g/dL 12.0-16.0 L Hematology (test code = HCTT) 34.9 % 36.0-47.0 L Hematology (test code = MCV) 92.9 fL 78.0-98.0 N Hematology (test code = MCH) 31.2 pg 27.0-31.0 H Hematology (test code = MCHC) 33.6 g/dL 32.0-36.0 N Hematology (test code = RDW) 12.0 % 11.5-14.5 N Hematology (test code = PLTT) 221 thou/uL 130-400 N Hematology (test code = MPV) 7.4 fL 7.4-10.4 N Laboratory [id number] 18:17:00Hepatitis B [facility]igen[facility] [id number] 18:17:00Syphilis IgG/IgM Antibody [facility])Vaginitis Panel 3 by DNA [id number] 15:58:00 Test Item Value Reference Range Interpretation Comments Vaginitis Panel 3 by DNA Probe VPIIICANDI (test code = VP3) Vaginitis Panel 3 by DNA Probe N (test code = VP31) Vaginitis Panel 3 by DNA Probe VPIIITRICH (test code = VP31) [id number] 15:23:00 Test Item Value Reference Range Interpretation Comments Urinalysis (test code = UACLR) YELLOW Yellow Urinalysis (test code = UACLY) CLEAR Clear Urinalysis (test code = SPGR) 1.018 1.002-1.036 N Urinalysis (test code = EDUAR) 7.0 5.0-9.0 N Urinalysis (test code = UALEU) Negative Negative Urinalysis (test code = UANIT) Negative Negative Urinalysis (test code = Negative mg/dL Neg-Trace PROUADIP) Urinalysis (test code = GLUCU) Negative mg/dL Negative Urinalysis (test code = KETU) Negative mg/dL Negative Urinalysis (test code = 0.2 mg/dL 0.2-1.0 UAUROB) Urinalysis (test code = UABIL) Negative Negative Urinalysis (test code = UABLD) Negative Negative Urine Source: Urine Clean HxcspKkqqzagyke4244-26-52 15:09:00 Test Item Value Reference Range Interpretation Comments Urinalysis (test code = No Membranes Rupture No Rupture AMNI-T) Laboratory Egyzqmo0715-04-22 14:50:00 Test Item Value Reference Range Interpretation Comments 00292-4 (test code = 87893-5) 7.0 5.0-9.0 [facility] Vgnvzjy2494-51-62 14:50:00 Test Item Value Reference Range Interpretation Comments 79118-5 (test code = 93928-9) 0.2 mg/dL [facility] Qqyfooh6815-47-47 14:50:00 Test Item Value Reference Range Interpretation Comments 38561-0 (test code = 86231-9) 1.018 1.002-1.036 [facility]atory Uplvbuo1604-39-78 14:50:00[facility] [id number] 14:50:00 [facility] Ygtfwvr7364-69-13 14:50:00Urine Leukocyte EsteraseCH[facility] Uvbppjg3520-20-71 14:50:00[facility]ones[facility] [id number] 14:50:00Urine Glucose (UA)[facility] Njdykuy5370-03-27 14:50:00[facility] Color[facility] Cssrgar6359-60-54 14:50:00[facility] Clarity[facility] [id number] 14:50:00[facility] BloodCH[facility] Rhnczld3984-95-96 14:50:00Urine BilirubinCH[facility] Pjlisig6969-08-44 14:50:00 Amniotic Fluid Swab TestCH[facility] ([place])[id number] 17:07:00 Test Item Value Reference Range Interpretation Comments Urinalysis (test code = UACLR) YELLOW Yellow Urinalysis (test code = UACLY) CLEAR Clear Urinalysis (test code = SPGR) 1.013 1.002-1.036 N Urinalysis (test code = EDUAR) 6.5 5.0-9.0 N Urinalysis (test code = UALEU) Negative Negative Urinalysis (test code = UANIT) Negative Negative Urinalysis (test code = Negative mg/dL Neg-Trace PROUADIP) Urinalysis (test code = GLUCU) Negative mg/dL Negative Urinalysis (test code = KETU) Negative mg/dL Negative Urinalysis (test code = 0.2 mg/dL 0.2-1.0 UAUROB) Urinalysis (test code = UABIL) Negative Negative Urinalysis (test code = UABLD) Negative Negative Urine Source: Urine Clean CatchLaboratory [id number] 16:45:00 Test Item Value Reference Range Interpretation Comments 93049-1 (test code = 12084-5) 6.5 5.0-9.0 [facility])Laboratory [id number] 16:45:00 Test Item Value Reference Range Interpretation Comments [id number] (test code = 24454-1) 0.2 mg/dL [facility])Laboratory [id number] 16:45:00 Test Item Value Reference Range Interpretation Comments [id number] (test code = 54590-5) 1.013 1.002-1.036 [facility] ([place])Laboratory [id number] 16:45:00[facility] [id number] 16:45:00 [facility] [id number] 16:45:00Urine Leukocyte EsteraseTexas [facility] [id number] 16:45:00[facility]ones[facility] ([place] [id number] 16:45:00Urine Glucose (UA)[facility] [id number] 16:45:00[facility] ColorCH[facility] ([place])[facility] [id number] 16:45:00[facility]rine Clarity[facility] ([place] [id number] 16:45:00[facility] BloodCH[facility] ([place] [id number] 16:45:00Urine BilirubinCH[facility] ([place])
[2021-10-22] MEDS ORDERED: ALBUTEROL 2.5 MG/3 ML NEB SOL ONE (11:56)
[2021-10-22] MEDS ORDERED: NA CHLORIDE 0.9% 1,000 ML ONE (11:56)
[2021-10-22] MEDS ORDERED: IPRATROPIUM BROM 0.5MG/2.5ML ONE (11:56)
[2021-10-22 12:30] LABS: ALT/SGPT 16 U/L (12-78); AST/SGOT 11 U/L (15-37); Albumin 3.5 g/dL (3.4-5.0); Alkaline Phosphatase 67 U/L (45-117); BUN Blood Urea Nitrogen 8 mg/dL (7-18); Bicarbonate 26 mmol/L (21-32); Bilirubin Total 0.6 mg/dL (0.2-1.0); Glucose Level 99 mg/dL (74-106); Potassium 3.2 mmol/L (3.5-5.1); Protein, Total 7.7 g/dL (6.4-8.2); Sodium Level 141 mmol/L (136-145)
[2021-10-22 12:32] LABS: Absolute Lymphocytes (CBC) 1.4 K/uL (0.7-4.9); Lymphocytes % 25.8 % (15.3-44.8); MPV 7.7 fL (7.6-11.3); RBC Red Blood Cell Count 3.81 M/uL (3.86-4.86)
--- NOTE | 2021-10-22 12:53 | RAD REPORT ---
EXAM DESCRIPTION: RAD - Chest Single View - 10/22/2021 12:47 pm CLINICAL HISTORY: cough, wheezing COMPARISON: No comparisons FINDINGS: Lines: None. Lungs: No evidence of edema or pneumonia. Pleural: No significant pleural effusions or pneumothorax. Cardiac: The heart size is within normal limits. Bones: No acute fractures. Other: IMPRESSION: No acute cardiopulmonary disease.
[2021-10-22 13:27] LABS: Urine Blood Negative (Negative); Urine Glucose Negative (Negative); Urine Protein Negative (Negative)
[2021-10-22] MEDS ORDERED: HYDROCODONE/CHLORPHEN 5 ML/OSYR ONE (13:40)
[2021-10-22 13:52] LABS: SARS-COV-2 RT PCR NEGATIVE (NEGATIVE)
--- NOTE | 2021-10-22 14:13 | ER ---
Nurse's Notes [facility] Name: Nae Harris Age: 31 yrs Sex: Female : 1990 Arrival Date: 10/22/2021 Time: 11:12 Bed 19 Private MD: Diagnosis: UTI/ Urinary tract infection, site not specified;Cough;Wheezing Presentation: 10/22 11:17 Chief complaint: Patient states: wet cough x 1 week ago and body aches, reports has aa5 been taking antibiotics for strep throat. 11:17 Coronavirus screen: cough unrelated to allergies. Ebola Screen: No symptoms or risks aa5 identified at this time. Initial Sepsis Screen: Does the patient meet any 2 criteria? HR > 90 bpm. Does the patient have a suspected source of infection? Yes:. Risk Assessment: Do you want to hurt yourself or someone else? Patient reports no desire to harm self or others. Onset of symptoms was September 2021. 11:17 Acuity: QUINTON 3 aa5 11:17 Method Of Arrival: Ambulatory aa5 Triage Assessment: 11:30 General: Appears distressed, uncomfortable, Behavior is cooperative, appropriate for bp age, anxious. Pain: Denies pain. EENT: No deficits noted. Neuro: No deficits noted. Cardiovascular: No deficits noted. Respiratory: Reports cough that is productive, persistent Breath sounds are coarse bilaterally. GI: No signs and/or symptoms were reported involving the gastrointestinal system. : No signs and/or symptoms were reported regarding the genitourinary system. Derm: No deficits noted. Musculoskeletal: No deficits noted. Historical: - Allergies: 11:20 No Known Allergies; aa5 - PMHx: 11:20 tubal ; aa5 - Immunization history:: Flu vaccine is up to date. - Social history:: Smoking status: Patient reports the use of cigarette tobacco products. Screenin:30 Abuse screen: Denies threats or abuse. Denies injuries from another. Nutritional bp screening: No deficits noted. Tuberculosis screening: No symptoms or risk factors identified. Fall Risk None identified. Assessment: 11:30 General: SEE TRIAGE NOTE. bp 13:00 Reassessment: No changes from previously documented assessment. Patient and/or family bp updated on plan of care and expected duration. Pain level reassessed. 14:50 Reassessment: PT D/C HOME AMBULATORY WITH FAMILY, DX WITH UTI AND VIRAL URI. bp Vital Signs: 11:17 BP 117 / 83; Pulse 98; Resp 18 S; Temp 98.8(O); Pulse Ox 100% on R/A; Weight 63.05 kg aa5 (R); Height 5 ft. 8 in. (172.72 cm) (R); 13:00 BP 134 / 76; Pulse 90; Resp 16; Pulse Ox 100% ; bp 13:39 Temp 99.0; bp 14:50 BP 128 / 77; Pulse 89; Resp 20; Temp 99.1; Pulse Ox 100% ; bp 11:17 Body Mass Index 21.13 (63.05 kg, 172.72 cm) aa5 ED Course: 11:12 Patient arrived in ED. as 11:13 Everton Beltran PA is PHCP. [facility] 11:13 Cosmo Parks MD is Attending Physician. jmm 11:17 Arm band placed on Patient placed in an exam room, on a stretcher. aa5 11:20 Triage completed. aa5 11:30 Patient has correct armband on for positive identification. Bed in low position. Call bp light in reach. Side rails up X2. Adult w/ patient. 11:58 Arnulfo Schilling, RN is Primary Nurse. bp 11:58 Inserted saline lock: 20 gauge in left antecubital area, using aseptic technique. Blood bp collected. 12:49 Chest Single View XRAY In Process Unspecified. EDMS 14:50 No provider procedures requiring assistance completed. IV discontinued, intact, bp bleeding controlled, No redness/swelling at site. Pressure dressing applied. Administered Medications: 11:59 Drug: NS 0.9% 1000 ml Route: IV; Rate: 1 bolus; Site: left antecubital; bp 14:52 Follow up: IV Status: Completed infusion; IV Intake: 1000ml bp 11:59 Drug: DuoNeb (albuterol 2.5 mg, ipratropium 0.5 mg) (3:1) (2.5 mg - 0.5 mg) 3 ml Route: bp Nebulizer; 13:22 Follow up: Response: No adverse reaction bp 13:39 Drug: Tussionex Pennkinetic ER (chlorpheniramine-hydrocodone) Suspension 5 ml Route: PO;bp 14:51 Follow up: Response: No adverse reaction bp Intake: 14:52 IV: 1000ml; Total: 1000ml. bp Outcome: 14:13 Discharge ordered by . won 14:50 Discharged to home ambulatory, with family. bp 14:50 Condition: stable 14:50 Discharge instructions given to patient, Instructed on discharge instructions, follow up and referral plans. medication usage, Demonstrated understanding of instructions, follow-up care, medications, Prescriptions given X 4. 14:52 Patient left the ED. bp Signatures: Dispatcher [employer] EDMS Everton Beltran PA PA jmm Martinez, Amelia as Calderon, Audri, RN RN aa5 Arnulfo Schilling RN RN bp
--- NOTE | 2021-10-22 14:13 | EDPHYS ---
Physician Documentation [facility] Name: Nae Harris Age: 31 yrs Sex: Female : 1990 Arrival Date: 10/22/2021 Time: 11:12 Bed 19 Private MD: ED Physician Cosmo Parks HPI: 10/22 14:08 This 31 yrs old Female presents to ER via Ambulatory with complaints of Fever, Fatigue, jmm Decreased Appetite. 14:08 Onset: The symptoms/episode began/occurred gradually, 4 day(s) ago. Modifying factors: jmm there are no obvious modifying factors. This is a 31 year old female that presents to the ED with complaints of cough, shortness of breath beginning approx 4 days ago. Also complains of fever and chills. . Historical: - Allergies: 11:20 No Known Allergies; aa5 - PMHx: 11:20 tubal ; aa5 - Immunization history:: Flu vaccine is up to date. - Social history:: Smoking status: Patient reports the use of cigarette tobacco products. ROS: 14:08 Constitutional: Positive for body aches, fever. jmm 14:08 Respiratory: Positive for cough. 14:08 All other systems are negative. Exam: 14:08 Constitutional: This is a well developed, well nourished patient who is awake, alert, jmm and in no acute distress. Head/Face: atraumatic. Eyes: EOMI, no conjunctival erythema appreciated ENT: Moist Mucus Membranes Neck: Trachea midline, Supple Chest/axilla: Normal chest wall appearance and motion. Cardiovascular: Regular rate and rhythm. No edema appreciated Respiratory: Normal respirations, no respiratory distress appreciated 14:08 Back: Normal ROM Skin: General appearance color normal MS/ Extremity: Moves all extremities, no obvious deformities appreciated, no edema noted to the lower extremities Neuro: Awake and alert Psych: Behavior is normal, Mood is normal, Patient is cooperative and pleasant 14:08 Respiratory: the patient does not display signs of respiratory distress, Respirations: normal, Breath sounds: wheezing: is scattered. 14:08 Abdomen/GI: Inspection: abdomen appears normal, Bowel sounds: normal, Palpation: abdomen is soft and non-tender, in all quadrants. Vital Signs: 11:17 BP 117 / 83; Pulse 98; Resp 18 S; Temp 98.8(O); Pulse Ox 100% on R/A; Weight 63.05 kg aa5 (R); Height 5 ft. 8 in. (172.72 cm) (R); 13:00 BP 134 / 76; Pulse 90; Resp 16; Pulse Ox 100% ; bp 13:39 Temp 99.0; bp 14:50 BP 128 / 77; Pulse 89; Resp 20; Temp 99.1; Pulse Ox 100% ; bp 11:17 Body Mass Index 21.13 (63.05 kg, 172.72 cm) aa5 MDM: 11:37 Patient medically screened. [facility] 14:10 Data reviewed: vital signs, nurses notes. Counseling: I had a detailed discussion with [facility] the patient and/or guardian regarding: the historical points, exam findings, and any diagnostic results supporting the discharge/admit diagnosis, lab results, radiology results, the need for outpatient follow up, to return to the emergency department if symptoms worsen or persist or if there are any questions or concerns that arise at home. ED course: Patient is alert and non toxic in appearance in the ED. CXR is. 10/22 11:38 Order name: CBC with Diff; Complete Time: 12:34 [facility] 10/22 11:38 Order name: CMP; Complete Time: 12:34 [facility] 10/22 11:38 Order name: COVID-19/FLU A+B (Document "Date of Onset" if Symptomatic); Complete Time: [facility] 14:01 10/22 12:34 Order name: Chest Single View XRAY; Complete Time: 12:54 [facility] 10/22 13:27 Order name: Urine Dipstick-Ancillary; Complete Time: 13:32 [facility] 10/22 13:30 Order name: Urine --Ancillary (enter results); Complete Time: 13:51 bd 10/22 11:38 Order name: Saline Lock; Complete Time: 11:59 [facility] 10/22 11:38 Order name: Urine Dipstick-Ancillary (obtain specimen); Complete Time: 13:39 [facility] 10/22 13:24 Order name: Vital Signs; Complete Time: 13:39 [facility] Administered Medications: 11:59 Drug: NS 0.9% 1000 ml Route: IV; Rate: 1 bolus; Site: left antecubital; bp 14:52 Follow up: IV Status: Completed infusion; IV Intake: 1000ml bp 11:59 Drug: DuoNeb (albuterol 2.5 mg, ipratropium 0.5 mg) (3:1) (2.5 mg - 0.5 mg) 3 ml Route: bp Nebulizer; 13:22 Follow up: Response: No adverse reaction bp 13:39 Drug: Tussionex Pennkinetic ER (chlorpheniramine-hydrocodone) Suspension 5 ml Route: PO;bp 14:51 Follow up: Response: No adverse reaction bp Disposition: 15:37 Co-signature as Attending Physician, Cosmo Parks MD. rn Disposition Summary: 10/22/21 14:13 Discharge Ordered Location: Home jmm Condition: Stable jmm Diagnosis - UTI/ Urinary tract infection, site not specified jmm - Cough jmm - Wheezing jmm Followup: jmm - With: Private Physician - When: 2 - 3 days - Reason: Recheck today's complaints, Continuance of care, Re-evaluation by your physician Discharge Instructions: - Discharge Summary Sheet jmm - Upper Respiratory Infection, Adult jmm - Urinary Tract Infection, Adult jmm Forms: - Medication Reconciliation Form jmm - Thank You Letter jmm - Antibiotic Education jmm - Prescription Opioid Use jmm - Work release form bp - Family Work Release bp Prescriptions: - cefdinir 300 mg Oral capsule - take 1 capsule by ORAL route every 12 hours for 10 days; 20 capsule; Refills: jm 0, Product Selection Permitted - promethazine-DM - take 5 milliliter by ORAL route every 4-6 hours As needed; 120 milliliter; jmm Refills: 0, Product Selection Permitted - albuterol sulfate 90 mcg/actuation Inhalation HFA aerosol inhaler - inhale 2 puff by INHALATION route every 4-6 hours; 1 Pump; Refills: 0, Product jm Selection Permitted - Medrol (Jayant) 4 mg Oral Tablets, Dose Pack - take 1 tablet by ORAL route as directed - follow package instructions; 1 jm packet; Refills: 0, Product Selection Permitted Signatures: Dispatcher [employer] Everton Billingsley PA PA jmm Cosmo Parks MD MD rn Calderon, Audri, RN RN aa5 Arnulfo Schilling RN RN bp
[2021-10-22 15:19] VITALS: O2SAT 100
[2021-10-22 15:25] VITALS: BP 128/77; TEMP 99.1
== END 2021-10-22 14:52 | disposition home or self-care (01) ==
LOC: ER 11:09
DX: N39.0 Urinary tract infection, site not specified (principal); R50.9 Fever, unspecified; R06.2 Wheezing; Z20.822 Contact with and (suspected) exposure to COVID-19; F17.210 Nicotine dependence, cigarettes, uncomplicated
CPT/HCPCS: 96361; 85025; 36415; 81025; 81003; 80053; 0240U; 71045; 94640; 96360; 99284; J7030